=== PATIENT | female | born 1945 | race Caucasian/White ===

== ENCOUNTER 2019-07-25 11:37 | Emergency (ER) | payer MEDICARE, BC ==
[2019-07-25] MEDS ORDERED: predniSONE 20 MG Tab PO ONE (12:29)
[2019-07-25] MEDS ORDERED: Diazepam 5 MG Tab PO ONE (12:29)
[2019-07-25] MEDS ORDERED: traMADol 50 MG Tab PO ONE (12:30)
--- NOTE | 2019-07-25 13:09 | EDM.PDOC ---
ED HPI GENERAL MEDICAL PROBLEM - General Chief Complaint: Lower Extremity Injury/Pain Stated Complaint: right sciatica pain Time Seen by Provider: 07/25/19 11:52 Source of Information: Reports: Patient History Limitations: Reports: No Limitations - History of Present Illness INITIAL COMMENTS - FREE TEXT/NARRATIVE: Patient comes to ER with right sciatic pain. Retired PT from this facility. Has been trying to do stretches at home but no help. Pain sometimes radiates all the way down to her foot. No numbness/weakness however. No hx of injury. No hx of similar sciatic issues in past. Several weeks of right buttock/hip not feeling "right". Pain started in earnest a week ago and became a 10/10 today. Has multiple medical issues and is not supposed to take NSAIDs. Can take Tylenol. Used old Oxycodone last night left over from a previous surgery which helped her sleep. No other acute changes. Right Leg Pain Score (Numeric/FACES): 10 - Related Data Allergies Allergy/AdvReac Type Severity Reaction Status Date / Time adhesive tape Allergy Blisters Verified 07/25/19 11:45 Home Meds: Home Meds Calcium Carbonate [Calcium] 600 mg PO TID 07/25/19 [History] Insulin Lispro 45 unit SQ DAILY 07/25/19 [History] Lipase/Protease/Amylase [Enzadyne Capsule] 3 each PO TID 07/25/19 [History] Sodium Bicarbonate 650 mg PO TID 07/25/19 [History] Thiamine [Vitamin B-1] 100 mg PO DAILY@1400 07/25/19 [History] calcitrioL [Rocaltrol] 0.25 mcg PO BID 07/25/19 [History] glucagon HCL [Glucagon Emergency Kit] 1 mg IJ ASDIRECTED PRN 07/25/19 [History] lisinopriL [Lisinopril] 2.5 mg PO DAILY 07/25/19 [History] Past Medical History Genitourinary History: Reports: Renal Calculus Endocrine/Metabolic History: Reports: Diabetes, Type I, Other (See Below) Other 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 Insulin Pump Model and Remote Sensing Analyst: Opzi Type of Insulin Used in Pump: humalog Who Manages Your Pump: Patient (Self) Who Medically Manages Your Pump (Provider): Dr. Stern, 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 - Infectious Disease History Infectious Disease History: Reports: Chicken Pox - Past Surgical History GI Surgical History: Reports: Appendectomy, Cholecystectomy, Other (See Below) Other GI Surgeries/Procedures: pancreas, spleen, and duodenum removed Female Surgical History: Reports: Hysterectomy Endocrine Surgical History: Reports: Parathyroidectomy Social & Family History - Tobacco Use Smoking Status *Q: Former Smoker Years of Tobacco use: 9 Packs/Tins Daily: 1 Used Tobacco, but Quit: Yes Month/Year Tobacco Last Used: 1982 - Caffeine Use Caffeine Use: Reports: Coffee - Recreational Drug Use Recreational Drug Use: No Review of Systems - Review of Systems Review Of Systems: Comprehensive ROS is negative, except as noted in HPI. ED EXAM, GENERAL - Physical Exam Exam: See Below Exam Limited By: No Limitations General Appearance: Alert, WD/WN, Other (uncomfortable, shifts position frequently, is bothered by her hip discomfort. ) Eye Exam: Bilateral Eye: EOMI, PERRL Ears: Normal External Exam, Hearing Grossly Normal Nose: No: Nasal Deformity, Nasal Swelling, Nasal Drainage Throat/Mouth: Normal Lips, Normal Voice, No Airway Compromise Head: Atraumatic, Normocephalic Neck: Supple, Non-Tender, Full Range of Motion Respiratory/Chest: No Respiratory Distress, Lungs Clear, Normal Breath Sounds, No Accessory Muscle Use Cardiovascular: Regular Rate, Rhythm, No Murmur GI/Abdominal: Normal Bowel Sounds, Soft, Non-Tender, No Distention (Female) Exam: Deferred Rectal (Female) Exam: Deferred Back Exam: Other (no sciatic notch tenderness noted). No: CVA Tenderness (L), CVA Tenderness (R), Muscle Spasm, Paraspinal Tenderness, Vertebral Tenderness Extremities: Normal Range of Motion, No Pedal Edema, Normal Capillary Refill, Other (negative straight leg lift left and right) Neurological: Alert, Oriented, CN II-XII Intact, Normal Cognition, Normal Gait, Normal Reflexes, No Motor/Sensory Deficits Psychiatric: Normal Affect, Normal Mood Skin Exam: Warm, Dry, Intact, Normal Color Course - Vital Signs Last Recorded V/S: Last Vital Signs Temp 36.6 C 07/25/19 11:37 Pulse 66 07/25/19 11:37 Resp 20 07/25/19 11:37 BP 122/67 07/25/19 11:37 Pulse Ox 97 07/25/19 11:37 - Orders/Labs/Meds Orders: Active Orders 24 hr Category Date Time Status Lumbar Spine 2 or 3V [CR] Stat Exams 07/25/19 11:53 Ordered Meds: Medications Discontinued Medications Generic Name Dose Route Start Last Admin Trade Name Bennett PRN Reason Stop Dose Admin Diazepam 5 mg 07/25/19 12:29 07/25/19 12:37 Valium. PO 07/25/19 12:30 5 mg ONETIME ONE Administration Prednisone 40 mg 07/25/19 12:29 07/25/19 12:39 Prednisone PO 07/25/19 12:30 40 mg ONETIME ONE Administration Tramadol HCl 50 mg 07/25/19 12:30 07/25/19 12:37 Ultram PO 07/25/19 12:31 50 mg ONETIME ONE Administration - Radiology Interpretation Free Text/Narrative:: Xray of lumbar spine shows some degenerative changes but overall disc heights appear preserved. - Re-Assessments/Exams Free Text/Narrative Re-Assessment/Exam: 07/25/19 13:19 Plan at this time is to given single dose Valium and Tramadol for pain/spasm. Bottles of Flexeril and Tramadol sent with patient. Precautions reviewed prior to discharge in regards to dosing/mixing Tramadol, leftover oxycodone, and Flexeril. Also given prednisone and will continue this for 3 more days. To follow up closely with primary provider on Saturday. May need additional imaging such as MRI depending on clinical course. To follow up over the weekend in ER if she has additional problems. Departure - Departure Time of Disposition: 13:02 Disposition: Home, Self-Care 01 Condition: Good Clinical Impression: Sciatica Qualifiers: Laterality: right Qualified Code(s): M54.31 - Sciatica, right side - Discharge Information *PRESCRIPTION DRUG MONITORING PROGRAM REVIEWED*: Not Applicable *COPY OF PRESCRIPTION DRUG MONITORING REPORT IN PATIENT [place]: Not Applicable Instructions: Sciatica Referrals: PCP,None [Primary Care Provider] - Forms: ED Department Discharge Additional Instructions: See how you feel over the next few days. Continue to work on stretching and good hip mobility. Overall the spinal films looked pretty good. Radiology needs to officially review them however. OK to take another 4 pills of the Prednisone tomorrow morning. Then go to 2 pills on Saturday and Saturday, then stop. WATCH your sugars! If they get too high please call us. The dose of Prednisone may need to be adjusted. OK to take another pain pill in 6 hours. Tramadol one tab every 6 hours. If you decide to use your old pain pills, do not mix them with the Tramadol. One or the other! OK to take CBD oil and/or Tylenol with the Tramadol. The Valium was to see if a muscle relaxant would be helpful. Do not try to take any Flexeril (also a muscle relaxant) until tomorrow morning. OK to take one tablet every 8 hours. Do not take more than that dose. Mixing Flexeril with Tramadol or Oxycodone can make you very tired so it is important to avoid increasing the dose of either. Follow up with your provider Saturday by phone. You may need to consider getting an MRI like we discussed to further assess the nerve if it keeps giving you problems. Call the ER if you have any questions over the weekend. Sepsis Event Note - Evaluation Sepsis Screening Result: No Definite Risk - Focused Exam Vital Signs: Vital Signs Temp Pulse Resp BP Pulse Ox 07/25/19 11:37 36.6 C 66 20 122/67 97 Date Exam was Performed: 07/25/19 Time Exam was Performed: 13:12 - My Orders Last 24 Hours: My Active Orders 07/25/19 11:53 Lumbar Spine 2 or 3V [CR] Stat - Assessment/Plan Last 24 Hours: My Active Orders 07/25/19 11:53 Lumbar Spine 2 or 3V [CR] Stat
== END 2019-07-25 13:30 | disposition home or self-care (01) ==
LOC: LL.ED 11:37
DX: M54.31 Sciatica, right side (principal); E10.9 Type 1 diabetes mellitus without complications; Z91.09 Other allergy status, other than to drugs and biological substances; Z79.899 Other long term (current) drug therapy; Z87.891 Personal history of nicotine dependence
CPT/HCPCS: 72100; 99283; A9270